=== PATIENT | female | born 1995 | race Caucasian/White ===

== ENCOUNTER 2022-11-03 16:24 | Emergency (ER) | payer OTHER ==
[~2022-11-03] VITALS: Ht 162.6 cm; Wt 90.7 kg
== END 2022-11-03 21:48 | disposition home or self-care (01) ==
LOC: ER 16:24
DX: R42 Dizziness and giddiness (principal); Z91.013 Allergy to seafood

== ENCOUNTER 2023-06-25 18:41 | Emergency (ER) | payer OTHER ==
[~2023-06-25] VITALS: Ht 160 cm; Wt 108.9 kg
[2023-06-25 20:01] LABS: HEMATOCRIT 39.3 % (36.0-45.00); HEMOGLOBIN 13.6 g/dL (12.0-15.00); MEAN CELL VOLUME 86.9 fL (80.00-100.00); MEAN CORPUSCULAR HEMOGLOBIN 30.1 pg (27.00-32.0); MEAN CORPUSCULAR HGB CONC 34.7 g/dl (32.0-36.0); PLATELET COUNT 308 K/uL (150-450); RED BLOOD COUNT 4.52 M/uL (4.00-6.00); RED CELL DISTRIBUTION WIDTH 13.7 % (11.5-14.5)
[2023-06-25 20:28] LABS: ALBUMIN 3.6 gm/dL (3.4-5.0); BILIRUBIN TOTAL 1.14 mg/dL (0.3-1.2); CALCIUM 9.3 mg/dL (8.5-10.1); CREATININE SERUM 0.8 mg/dL (0.55-1.02); GFR 85.41; GLOBULINA 4.3 G/DL (2.4-3.5); POTASSIUM 3.89 mEq/L (3.5-5.1); TOTAL PROTEIN 7.9 gm/dL (6.4-8.2)
[2023-06-25 22:15] LABS: PH,URINE 5.5 (5.0-8.0); URINE APPEARANCE Clear; URINE BILIRRUBIN Negative (NEGATIVE); URINE BLOOD Negative; URINE COLOR Yellow; URINE GLUCOSE Negative (NEGATIVE); URINE LEUKOCYTE Negative; URINE NITRATE Negative; URINE PROTEIN Negative (NEGATIVE); URINE UROBILINOGEN 0.2 E.U./dl
[2023-06-25 22:18] LABS: URINE RBC 6.3 uL (0.0-20.8); URINE WBC 9.2 uL (0.0-23.2)
== END 2023-06-26 14:32 | disposition home or self-care (01) ==
LOC: ER 18:41
PROVIDERS: General Practice
DX: R10.11 Right upper quadrant pain (principal)

== ENCOUNTER 2023-06-28 21:34 | Emergency (ER) | payer OTHER ==
[~2023-06-28] VITALS: Ht 167.6 cm; Wt 113.4 kg
[2023-06-29 02:05] LABS: HEMATOCRIT 38.7 % (36.0-45.00); HEMOGLOBIN 13.2 g/dL (12.0-15.00); MEAN CELL VOLUME 86.9 fL (80.00-100.00); MEAN CORPUSCULAR HEMOGLOBIN 29.6 pg (27.00-32.0); MEAN CORPUSCULAR HGB CONC 34.1 g/dl (32.0-36.0); PLATELET COUNT 306 K/uL (150-450); RED BLOOD COUNT 4.46 M/uL (4.00-6.00); RED CELL DISTRIBUTION WIDTH 13.9 % (11.5-14.5)
== END 2023-06-29 11:08 | disposition home or self-care (01) ==
LOC: ER 21:34
DX: K59.01 Slow transit constipation (principal); R10.11 Right upper quadrant pain

== ENCOUNTER 2025-07-09 12:42 | Emergency (ER) | payer OTHER ==
[~2025-07-09] VITALS: Ht 160 cm; Wt 113.4 kg
[2025-07-09] MEDS ORDERED: LEVALBUTEROL HCL 1.25 MG/3 ML SOLUTION IH ONE (15:30)
[2025-07-09] MEDS ORDERED: METHYLPREDNISOLONE SOD SUCC 125 MG VIAL IV ONE (15:30)
[2025-07-09] MEDS ORDERED: IPRATROPIUM BROMIDE 0.5 MG/2.5 ML AMPUL.NEB IH ONE (15:30)
[2025-07-09 18:47] LABS: BASO % 0.5 % (0.1-1.2); EOS # 0.33 (0.04-0.54); EOS % 2.6 % (0.7-7.0); LYMPH # 2.83 (1.18-3.74); LYMPH % 21.9 % (19.3-53.1); MEAN PLATELET VOLUME 10.50 fl (9.4-12.4); MONO # 0.78 (0.24-0.82); MONO % 6.0 % (4.7-12.5); NEUT # 8.88 (1.56-6.13); NEUT % 68.6 % (34.0-71.1); RED CELL DISTRIBUTION WIDTH 13.2 % (11.6-14.4)
[2025-07-09 19:25] LABS: COVID-19 AG NEGATIVE (NEGATIVE)
[2025-07-09] MEDS ORDERED: TUSSIN DM LIQU118 ML PO (19:46)
[2025-07-09] MEDS ORDERED: SINGULAIR10 MG PO (19:46)
[2025-07-09] MEDS ORDERED: ZITHROMAX500 MG PO (19:46)
[2025-07-09] MEDS ORDERED: IPRATROPIU0.2 MG/1 M IH (19:46)
[2025-07-09] MEDS ORDERED: PEPCID AC20 MG PO (19:46)
[2025-07-09] MEDS ORDERED: ZYRTEC10 MG PO (19:46)
[2025-07-09] MEDS ORDERED: XOPENEX CO1.25 MG/0. IH (19:46)
== END 2025-07-09 20:49 | disposition home or self-care (01) ==
LOC: ER 12:42
PROVIDERS: General Practice
DX: J45.998 Other asthma (principal); J06.9 Acute upper respiratory infection, unspecified; J00 Acute nasopharyngitis [common cold]; Z20.822 Contact with and (suspected) exposure to COVID-19; Z91.013 Allergy to seafood